=== PATIENT | male | born 1995 | race Caucasian/White ===

== ENCOUNTER 2020-03-12 12:56 | Emergency (ER) | payer OTHER ==
--- NOTE | 2020-03-12 14:15 | XRay Report ---
XR finger(s) 2+V LT INDICATION: nail in index. COMPARISON: None available. FINDINGS: There is a nail in the distal index finger extending into the base of the distal phalanx with a nondi splaced fracture along the dorsal aspect of the base of the distal phalanx. Signer Name: Zechariah Khan MD Signed: 03/12/2020 2:11 PM Workstation Name: [id number]
[2020-03-12] MEDS ORDERED: LIDOCAINE-MPF (1%) 10 MG/1 ML VIAL 5 ML INFILTRATI ONE (14:36)
[2020-03-12] MEDS ORDERED: HYDROcodone/ACETAMINOPHEN 5-325 MG TAB PO ONE (14:36)
[2020-03-12] MEDS ORDERED: BUPIVACAINE/PF (0.5%) 5 MG/1 ML 10 ML VIAL INFILTRATI ONE (14:36)
[2020-03-12 14:43] VITALS: BP 107/70
--- NOTE | 2020-03-12 14:44 | Emergency Department Report ---
ED Upper Extremity Inj HPI - General Chief Complaint: Extremity Injury, Upper Stated Complaint: LT INDEX FINGER INJURY Time Seen by Provider: 03/12/20 13:43 Source: patient Mode of arrival: Ambulatory Limitations: Language Barrier - History of Present Illness Initial Comments: Language line used for Colombian interpretation Patient is a 24-year-old male presents emergency room with complaints of a male to the left index finger that occurred around 9 AM this morning. He states that he was using a nail gun when he accidentally nailed his finger. He states that he went to another clinic prior to coming to the emergency room and was given a tetanus immunization but was advised to present to the emergency room to have the nail removed. Is able to move the finger but states it is painful. He denies any numbness or weakness. No past medical history. No allergies to medications. - Related Data Previous Rx's Medication Instructions Recorded Last Taken Type Ibuprofen [Motrin 600 MG tab] 600 mg PO Q8H PRN #14 tablet 03/12/20 Unknown Rx cephALEXin [Keflex] 500 mg PO QID 7 Days #28 capsule 03/12/20 Unknown Rx traMADoL [Ultram 50 MG tab] 50 mg PO Q6HR PRN #10 tablet 03/12/20 Unknown Rx Allergies Allergy/AdvReac Type Severity Reaction Status Date / Time No Known Allergies Allergy Unverified 03/12/20 13:07 ED Review of Systems ROS: Stated complaint: LT INDEX FINGER INJURY Other details as noted in HPI Comment: All other systems reviewed and negative ED Past Medical Hx - Past Medical History Previous Medical History?: No - Surgical History Past Surgical History?: No - Social History Smoking Status: Never Smoker - Medications Home Medications: Home Medications Medication Instructions Recorded Confirmed Last Taken Type Ibuprofen [Motrin 600 MG tab] 600 mg PO Q8H PRN #14 tablet 03/12/20 Unknown Rx cephALEXin [Keflex] 500 mg PO QID 7 Days #28 capsule 03/12/20 Unknown Rx traMADoL [Ultram 50 MG tab] 50 mg PO Q6HR PRN #10 tablet 03/12/20 Unknown Rx ED Physical Exam - General Limitations: Language Barrier General appearance: alert, in no apparent distress - Head Head exam: Present: atraumatic, normocephalic - Eye Eye exam: Present: normal appearance - ENT ENT exam: Present: mucous membranes moist - Respiratory Respiratory exam: Absent: respiratory distress, accessory muscle use - Extremities Exam Extremities exam: Present: other (there is a metal nail present in the left dorsal index finger which goes all the way through the finger with just a very small piece sticking out of the palmar surface of the left index finger, FROM of the digits, hand, and wrist, no other injury, neurovascularly intact) - Neurological Exam Neurological exam: Present: alert, oriented X3 - Psychiatric Psychiatric exam: Present: normal affect, normal mood - Skin Skin exam: Present: warm, dry ED Course Vital Signs 03/12/20 13:07 Temperature 97.5 F L Pulse Rate 88 Respiratory 19 Rate Blood Pressure 107/70 O2 Sat by Pulse 97 Oximetry - Procedure Description Procedures done: Foreign body removal of left index finger. Skin prepped with Betadine, sterile drapes applied, 10 cc of 50-50 mixture of 1% lidocaine without epinephrine and 0.5% bupivacaine without epinephrine used as anesthetic for digital block, aspirated to make sure not in the vessel, local anesthesia achieved, pliers used to remove foreign body, able to remove foreign body completely, x-ray confirms complete removal, patient tolerated well, no complications, bleeding controlled, sterile dressing applied ED Medical Decision Making - Radiology Data Radiology results: report reviewed Ordering Physician: MONICA JIMENEZ Date of Service: 03/12/20 Procedure(s): XR finger(s) 2+V LT Accession Number(s): [id number] cc: MONICA JIMENEZ Fluoro Time In Minutes: XR finger(s) 2+V LT INDICATION: nail in index. COMPARISON: None available. FINDINGS: There is a nail in the distal index finger extending into the base of the distal phalanx with a nondisplaced fracture along the dorsal aspect of the base of the distal phalanx. Signer Name: Zechariah Khan MD Signed: 03/12/2020 2:11 PM Workstation Name: [id number] Transcribed By: GLENNA Dictated By: Zechariah Khan MD Electronically Authenticated By: Zechariah Khan MD Signed Date/Time: 03/12/201410 DD/ 09 TD/TT: Ordering Physician: MONICA COPPOLA Date of Service: 03/12/20 Procedure(s): XR finger(s) 2+V LT Accession Number(s): [id number] cc: MONICA COPPOLA Fluoro Time In Minutes: XR finger(s) 2+V LT INDICATION: s/p foreign body removal. COMPARISON: X-rays done earlier on 03/12/2020. FINDINGS: Foreign body has been removed. There is a mildly displaced intra-articular fracture of the base of the index finger distal phalanx. Signer Name: Zechariah Khan MD Signed: 03/12/2020 4:42 PM Workstation Name: [id number] Transcribed By: GLENNA Dictated By: Zechariah Khan MD Electronically Authenticated By: Zechariah Khan MD Signed Date/Time: 03/12/201641 DD/ 41 TD/TT: - Medical Decision Making Language line used for Colombian interpretation Patient is a 24-year-old male presents emergency room with complaints of a male to the left index finger that occurred around 9 AM this morning. He states that he was using a nail gun when he accidentally nailed his finger. He states that he went to another clinic prior to coming to the emergency room and was given a tetanus immunization but was advised to present to the emergency room to have the nail removed. Is able to move the finger but states it is painful. He denies any numbness or weakness. No past medical history. No allergies to medications. vitals are normal. on exam: there is a metal nail present in the left dorsal index finger which goes all the way through the finger with just a very small piece sticking out of the palmar surface of the left index finger, FROM of the digits, hand, and wrist, no other injury, neurovascularly intact. XR left hand: There is a nail in the distal index finger extending into the base of the distal phalanx with a nondisplaced fracture along the dorsal aspect of the base of the distal phalanx. Digital block performed per procedure note and foreign body completely removed. XR left finger: Foreign body has been removed. There is a mildly displaced intra-articular fracture of the base of the index finger distal phalanx. Patient states he was already given a tetanus immunization prior to arrival. Patient given 2 g of Ancef while in the emergency department secondary to open fracture. Wound irrigated with saline and thoroughly scrubbed with Betadine, there is a small 0.5 cm puncture present, no bleeding. Patient placed in sterile dressing and finger splint and remained neurovascularly intact. Dr. Up, ER attending recommended to write prescription for keflex. Patient given prescription for Keflex, ibuprofen, tramadol. Advised patient Please take medication as prescribed. Please keep area clean, dry, covered. Wash with antibacterial soap and water twice a day and pat dry. No hot tub, no pool. Follow-up with orthopedic doctor. Your finger is broken, do not remove splint. Return to emergency room for any new or worsening symptoms Critical care attestation.: If time is entered above; I have spent that time in minutes in the direct care of this critically ill patient, excluding procedure time. ED Disposition Clinical Impression: Foreign body of finger Finger fracture Qualifiers: Encounter type: initial encounter Finger: index finger Fracture type: open Phalanx: distal Fracture alignment: displaced Laterality: left Qualified Code(s): S62.631B - Displaced fracture of distal phalanx of left index finger, initial encounter for open fracture Disposition: TO HOME OR SELFCARE Is pt being admited?: No Does the pt Need Aspirin: No Condition: Stable Instructions: Finger Fracture, Adult, [id number] Additional Instructions: Please take medication as prescribed. Please keep area clean, dry, covered. Wash with antibacterial soap and water twice a day and pat dry. No hot tub, no pool. Follow-up with orthopedic doctor. Your finger is broken, do not remove splint. Return to emergency room for any new or worsening symptoms. [place] los medicamentos segn lo prescrito. Mantenga el bernard limpia, seca y cubierta. Rocky con agua y jabn antibacteriano dos veces al da y secar. Sin baera de hidromasaje, sin piscina. Seguimiento con mdico ortopdico. Sorensen dedo est roto, no retire la frula. Regrese a la bigg de emergencias por cualquier sntoma nuevo o que empeore. Prescriptions: cephALEXin [Keflex] 500 mg PO QID 7 Days #28 capsule Ibuprofen [Motrin 600 MG tab] 600 mg PO Q8H PRN #14 tablet PRN Reason: Pain, Moderate (4-6) traMADoL [Ultram 50 MG tab] 50 mg PO Q6HR PRN #10 tablet PRN Reason: Pain , Severe (7-10) Referrals: PRIMARY CARE, [Primary Care Provider] - 2-3 Days MATT BYRNE MD [Staff Physician] - 2-3 Days [facility] [Provider Group] - 2-3 Days Time of Disposition: 16:52 Print Language: LAO
--- NOTE | 2020-03-12 16:47 | XRay Report ---
XR finger(s) 2+V LT INDICATION: s/p foreign body removal. COMPARISON: X-rays done earlier on 03/12/2020. FINDINGS: Foreign body has been removed. There is a mildly displaced intra-articular fracture of the base of th e index finger distal phalanx. Signer Name: Zechariah Khan MD Signed: 03/12/2020 4:42 PM Workstation Name: [id number]
== END 2020-03-12 17:24 | disposition home or self-care (01) ==
LOC: ED 12:56
DX: S62.631B Displaced fracture of distal phalanx of left index finger, initial encounter for open fracture (principal); S60.451A Superficial foreign body of left index finger, initial encounter; Z79.1 Long term (current) use of non-steroidal anti-inflammatories (NSAID); Z79.899 Other long term (current) drug therapy; W45.8XXA Other foreign body or object entering through skin, initial encounter; Y93.89 Activity, other specified; Y92.89 Other specified places as the place of occurrence of the external cause; Y99.8 Other external cause status
CPT/HCPCS: 10120; 29130; 73140; 96365; 99283; J0690